=== PATIENT | female | born 1965 | race Caucasian/White ===

== ENCOUNTER → 2019-07-11 09:57 | Outpatient (CLI) | payer OTHER, SELFPAY ==
--- NOTE | 2019-07-11 | DI.RAD.S_ITS ---
PROCEDURE: XR HAND RT 2V INDICATIONS: HAND PAIN TECHNIQUE: 2 views of the hand(s) acquired. COMPARISON: None. FINDINGS: Bones: No fractures or dislocations but there is degenerative osteoarthritic change is seen at the base of the first metacarpal with a an ovoid subchondral cyst measuring up to 6 x 9 mm. Carpal bones are normally aligned. No suspicious bony lesions. Soft tissues: No suspicious soft tissue calcifications. IMPRESSION: Mild to moderate degenerative osteoarthritic change as discussed, no acute trauma or erosive arthritis found. Dictated by: Blaine Dodge M.D. on 07/11/2019 at 10:34 Approved by: Blaine Dodge M.D. on 07/11/2019 at 10:35
--- NOTE | 2019-07-11 | DI.RAD.S_ITS ---
PROCEDURE: XR HAND LT 2V INDICATIONS: HAND PAIN TECHNIQUE: 2 views of the hand(s) acquired. COMPARISON: [facility], CR, XR HAND RT 2V, 07/11/2019, 10:05. FINDINGS: Bones: No fractures or dislocations. There is a mild degree of degenerative osteoarthritis at the left hand, less so than that seen on the right from plain film imaging today. Carpal bones are normally aligned. No suspicious bony lesions. Soft tissues: No suspicious soft tissue calcifications. IMPRESSION: No trauma found. Only slight degree of degenerative osteoarthritic joint space narrowing is noted over the left and, less than that seen on the right from plain film imaging today. Dictated by: Blaine Dodge M.D. on 07/11/2019 at 10:35 Approved by: Blaine Dodge M.D. on 07/11/2019 at 10:36
== END ==
PROVIDERS: PCP Student in an Organized Health Care Education/Training Program; Visit Provider Student in an Organized Health Care Education/Training Program
DX: M25.541 Pain in joints of right hand (principal); M25.542 Pain in joints of left hand; M24.841 Other specific joint derangements of right hand, not elsewhere classified; M24.842 Other specific joint derangements of left hand, not elsewhere classified
CPT/HCPCS: 73120

== ENCOUNTER → 2020-08-09 08:56 | Outpatient (CLI) | payer OTHER, SELFPAY ==
--- NOTE | 2020-08-09 09:07 | DI.MG.S_ITS ---
Patient Name: JUSTIN WOLF date: 1965 Sex: F Attending Physician: Vish Indications: Date: 08/09/2020 09:04 At the request of: PACO BRICE Procedure: MM screening mammo BI BILATERAL DIGITAL SCREENING MAMMOGRAM 3D/2D WITH CAD: 08/09/2020 CLINICAL: Routine screening. Family history of breast cancer. Comparison is made to exams dated: 01/16/2015 mammogram, 09/21/2013 mammogram, and 04/22/2011 mammogram - [facility]. The tissue of both breasts is heterogeneously dense. This may lower the sensitivity of mammography. Current study was also evaluated with a Computer Aided Detection (CAD) system. No significant masses, calcifications, or other findings are seen in either breast. There has been no significant interval change. IMPRESSION: NEGATIVE There is no mammographic evidence of malignancy. A 1 year screening mammogram is recommended. This exam was interpreted at Station ID: [id number]. NOTE: For mammograms, a report in lay terms will be sent to the patient. Approximately 15% of breast malignancies will not be visualized mammographically. In the management of a palpable breast mass, a negative mammogram must not discourage biopsy of a clinically suspicious lesion. Electronically Signed By: Radha akbar/ponce:08/09/2020 10:42:53 letter sent: Normal Exam ACR BI-RADS Category 1: Negative 3341F
== END ==
PROVIDERS: PCP Internal Medicine; Referring Provider Internal Medicine; Visit Provider Student in an Organized Health Care Education/Training Program
DX: Z12.31 Encounter for screening mammogram for malignant neoplasm of breast (principal); Z80.3 Family history of malignant neoplasm of breast
CPT/HCPCS: 77063; 77067

== ENCOUNTER → 2021-08-28 17:32 | Outpatient (CLI) | payer OTHER, SELFPAY ==
--- NOTE | 2021-08-28 | DI.MG.S_ITS ---
BILATERAL DIGITAL SCREENING MAMMOGRAM 3D/2D WITH CAD: 08/28/2021 CLINICAL: Routine screening. Family history of breast cancer. Comparison is made to exams dated: 08/09/2020 mammogram - [facility], 01/16/2015 mammogram, and 09/21/2013 mammogram - [facility]. The tissue of both breasts is heterogeneously dense. This may lower the sensitivity of mammography. Current study was also evaluated with a Computer Aided Detection (CAD) system. No significant masses, calcifications, or other findings are seen in either breast. There has been no significant interval change. IMPRESSION: NEGATIVE There is no mammographic evidence of malignancy. A 1 year screening mammogram is recommended. This exam was interpreted at Station ID: [id number]. NOTE: For mammograms, a report in lay terms will be sent to the patient. Approximately 15% of breast malignancies will not be visualized mammographically. In the management of a palpable breast mass, a negative mammogram must not discourage biopsy of a clinically suspicious lesion. Electronically Signed By: Parvez salazar/ponce:08/29/2021 07:35:25 letter sent: Normal Exam ACR BI-RADS Category 1: Negative 3341F
== END ==
PROVIDERS: PCP Internal Medicine; Referring Provider Internal Medicine; Visit Provider Internal Medicine
DX: Z12.31 Encounter for screening mammogram for malignant neoplasm of breast (principal)
CPT/HCPCS: 77063; 77067

== ENCOUNTER → 2022-11-10 08:22 | Outpatient (CLI) | payer OTHER, SELFPAY ==
--- NOTE | 2022-11-10 08:24 | DI.MG.S_ITS ---
BILATERAL DIGITAL SCREENING MAMMOGRAM 3D/2D WITH CAD: 11/10/2022 CLINICAL: Routine screening. Family history of breast cancer. Comparison is made to exams dated: 08/28/2021 mammogram, 08/09/2020 mammogram - [facility], and 01/16/2015 mammogram - [facility]. Both breasts are heterogeneously dense, which may obscure small masses (category c / 51-75% glandular tissue). Current study was also evaluated with a Computer Aided Detection (CAD) system. No significant masses, calcifications, or other findings are seen in either breast. There has been no significant interval change. IMPRESSION: NEGATIVE There is no mammographic evidence of malignancy. A 1 year screening mammogram is recommended. This exam was interpreted at Station ID: [id number]. NOTE: For mammograms, a report in lay terms will be sent to the patient. Approximately 15% of breast malignancies will not be visualized mammographically. In the management of a palpable breast mass, a negative mammogram must not discourage biopsy of a clinically suspicious lesion. Electronically Signed By: Willie crowell/ponce:11/10/2022 09:16:02 letter sent: Normal Exam ACR BI-RADS Category 1: Negative 3341F
== END ==
PROVIDERS: PCP Internal Medicine; Referring Provider Student in an Organized Health Care Education/Training Program; Visit Provider Student in an Organized Health Care Education/Training Program
DX: Z12.31 Encounter for screening mammogram for malignant neoplasm of breast (principal); Z80.3 Family history of malignant neoplasm of breast
CPT/HCPCS: 77063; 77067

== ENCOUNTER → 2025-01-09 15:56 | Outpatient (CLI) | payer OTHER, SELFPAY ==
--- NOTE | 2025-01-09 15:58 | DI.MG.S_ITS ---
BILATERAL DIGITAL SCREENING MAMMOGRAM 3D/2D WITH CAD: 01/09/2025 CLINICAL: Routine screening. Family history of breast cancer. Comparison is made to exams dated: 11/10/2022 mammogram, 08/28/2021 mammogram, and 08/09/2020 mammogram - [facility]. The breasts are heterogeneously dense, which may obscure small masses (category c / 51-75% glandular tissue). Current study was also evaluated with a Computer Aided Detection (CAD) system. No significant masses, calcifications, or other findings are seen in either breast. There has been no significant interval change. IMPRESSION: NEGATIVE There is no mammographic evidence of malignancy. A 1 year screening mammogram is recommended. Based on the Tyrer Cuzick model (a risk assessment model) the patient's lifetime risk is 17.2% and her 10 year risk is 7.2%. According to the ACR, ACS, and NCCN guidelines, an annual breast MRI exam along with mammogram is recommended if the patient's lifetime risk is 20% or greater. This exam was interpreted at Station ID: [id number]. NOTE: For mammograms, a report in lay terms will be sent to the patient. Approximately 15% of breast malignancies will not be visualized mammographically. In the management of a palpable breast mass, a negative mammogram must not discourage biopsy of a clinically suspicious lesion. Electronically Signed By: Parvez salazar/ponce:01/10/2025 07:45:28 letter sent: Normal Exam ACR BI-RADS Category 1: Negative
== END ==
PROVIDERS: Visit Provider Student in an Organized Health Care Education/Training Program
DX: Z12.31 Encounter for screening mammogram for malignant neoplasm of breast (principal); Z80.3 Family history of malignant neoplasm of breast; R92.333 Mammographic heterogeneous density, bilateral breasts
CPT/HCPCS: 77063; 77067